=== PATIENT | male | born 1995 | race Caucasian/White ===

== ENCOUNTER 2019-06-15 23:01 | Emergency (ER) | payer BC, OTHER ==
[~2019-06-15] VITALS: Ht 177.8 cm; Wt 74.8 kg
[2019-06-15] MEDS ORDERED: IBUPROFEN 600600 M1 PO (23:10)
[2019-06-15 23:25] LABS: ABSOLUTE BASOPHILS 0.1 thou/uL (0.0-0.2); ABSOLUTE EOSINOPHILS 0.3 thou/uL (0.0-0.7); ABSOLUTE LYMPHOCYTES 3.7 thou/uL (0.8-5.3); ABSOLUTE MONOCYTES 0.6 thou/uL (0.0-1.2); ABSOLUTE NEUTROPHILS 3.3 thou/uL (1.6-8.1); BASOPHILS 0.9 %; EOSINOPHILS 4.2 %; HEMATOCRIT 48.1 % (42.0-52.0); HEMOGLOBIN 16.9 gm/dL (14.0-18.0); LYMPHOCYTES 46.2 %; MCH 30.3 pg (26.0-34.0); MCHC 35.2 g/dL (28.0-37.0); MCV 86.3 fL (80.0-100.0); MONOCYTES 7.3 %; MPV 7.9 fl. (7.2-11.1); NUCLEATED RBCS 0 /100WBC; PLATELET COUNT* 211 thou/uL (150-400); POLYS 41.4 %; RBC 5.58 mil/uL (4.50-6.00); RDW-CV 13.2 % (10.5-14.5); WBC 8.1 thou/uL (4.0-11.0)
[2019-06-15 23:34] LABS: CALCIUM 10.1 mg/dL (8.5-10.1); CREATININE 1.3 mg/dL (0.6-1.3); POTASSIUM 3.8 mmol/L (3.5-5.1)
[2019-06-15 23:38] LABS: ALBUMIN 4.3 g/dL (3.4-5.0); TOTAL BILIRUBIN 0.3 mg/dL (<0.1-1.0); TOTAL PROTEIN 7.5 g/dL (6.4-8.2)
[2019-06-16 00:24] VITALS: BP 163/98
--- NOTE | 2019-06-17 14:20 | EKG ---
[place] [address] ELECTROCARDIOGRAM REPORT Name: KRISTIN GERONIMO Room: [facility]#: [id number] Admission: 06/15/19 Attend Phys: Discharge: 06/16/19 Date of : [birth year] Report #: [id number] THIS REPORT FOR: //name// [facility] ED Test Date: 2019-06-15 Test Time: 23:08:07 Pat Name: KRISTIN GERONIMO Department: Room: Gender: M [employer]: : 1995 Requested By: Antoni Griggs Order Number: [id number] MD: Daniel Looney Measurements Intervals [place] Rate: 70 P: 77 WI: 158 QRS: 87 QRSD: 91 T: 38 QT: 359 QTc: 388 Interpretive Statements Sinus rhythm ST elev, probable normal early repol pattern No previous ECG available for comparison Electronically Signed On 06-17-2019 14:20:07 CDT by Daniel Looney [email or web address] <ELECTRONICALLY SIGNED> By: Joaquim Looney MD, [facility] 06/17/19 1420 [id number] Joaquim Looney MD, FACC /EPI
== END 2019-06-16 00:27 | disposition home or self-care (01) ==
LOC: M.ERS 23:01
PROVIDERS: Emergency Medicine Emergency Medical Services
DX: R07.89 Other chest pain (principal)